=== PATIENT | male | born 1960 | race Caucasian/White ===

== ENCOUNTER → 2017-06-27 | Outpatient (CLI) | payer OTHER ==
[~2017-06-27] MED LIST: AMBIEN 5 MG TABL5 M1 PO; ASPIR 8181 MG PO; COUMADIN 5 MG TA5 M1 PO; ENOXAPARIN80 MG/0.1 INJECTION; FIRST AID ANT28.4 GM TOP; PROSCAR 5MG TABL5 MG PO; TUMS PO; TYLENOL325 MG PO; [UNRECOGNIZED DRUG - OTHER] TOP
== END ==
LOC: CAT 10:03
DX: Z13.6 Encounter for screening for cardiovascular disorders (principal)

== ENCOUNTER → 2019-04-28 | Outpatient (CLI) | payer OTHER | LOC: MRI 03-05 15:37 | DX: M23.322 Other meniscus derangements, posterior horn of medial meniscus, left knee (principal); M23.022 Cystic meniscus, posterior horn of medial meniscus, left knee ==

== ENCOUNTER → 2019-12-22 | Outpatient (CLI) | payer BC, OTHER | LOC: LAB 13:59 | PROVIDERS: ATTEND Family Medicine | DX: R05 Cough (principal); Z20.828 Contact with and (suspected) exposure to other viral communicable diseases ==

== ENCOUNTER → 2020-06-08 | Outpatient (CLI) | payer OTHER | LOC: CAT 07:52 | PROVIDERS: ATTEND Family Medicine | DX: Z13.6 Encounter for screening for cardiovascular disorders (principal); I25.10 Atherosclerotic heart disease of native coronary artery without angina pectoris; E78.00 Pure hypercholesterolemia, unspecified ==

== ENCOUNTER → 2020-06-19 | Outpatient (CLI) | payer BC, OTHER | LOC: CAT 09:30 | PROVIDERS: ATTEND Family Medicine | DX: J34.1 Cyst and mucocele of nose and nasal sinus (principal); G44.029 Chronic cluster headache, not intractable; J34.89 Other specified disorders of nose and nasal sinuses ==